=== PATIENT | female | born 1980 | race Caucasian/White ===

== ENCOUNTER 2016-11-17 11:58 | Day surgery (SDC) | payer OTHER ==
[2016-11-17] VITALS (8 sets, daily range): BP systolic 100–128; BP diastolic 59–67; PULSE 57–73; RESP 15–16; O2SAT 98–100
[~2016-11-17] VITALS: Ht 152.4 cm; Wt 70.4 kg
[~2016-11-17 11:58] MED LIST: levoFLOXacin Inj 500 MG in IV Premix 1 EACH IV SCH
[2016-11-17] MEDS ORDERED: Propofol 10,000 mCg/mL 20 mL Inj ONE (11:59)
[2016-11-17] MEDS ORDERED: MetoCLOpramide 5 mg/mL 2 mL Inj ONE (11:59)
[2016-11-17] MEDS ORDERED: Dexamethasone 4 mg/mL Inj ONE (11:59)
[2016-11-17] MEDS: Lactated Ringer's 1,000 ML IV SCH ×2 (12:07→14:53)
[2016-11-17] MEDS ORDERED: levoFLOXacin 500 mg/100 mL D5W Premix IV ONE (12:14)
--- NOTE | 2016-11-17 13:25 | PCM.HPANE ---
Patient Data Date of Service: Nov 17, 2016 Surgeon Admitting Provider: Attending Provider:Johanna Bryant MD Primary Care Physician:Hari Other Provider:Shaila Parra Anesthesia Reason for Visit Urinary Urgency, Urinary Incontinence Ht/WT & BMI Height (Feet): 5 Height (Inches): 0 Weight (Kilograms): 70.4 Body Mass Index 30.00 Allergies Coded Allergies: No Known Allergies (Unverified , 11/10/16) Past Anesthesia History Anesthesia History: Denies:: Anesthesia Reactions, Fam Anesthesia Reaction, Fam Malignant Hypertherm, Malignant Hyperthermia Diabetes History Hx Diabetes?: No MRSA MRSA: No Medications Hypertension Medication: No Home Meds Incl Beta Dagoberto: No No Active Prescriptions or Reported Meds History History of ENT Problems?: No HEENT History: Denies:: Cataracts Glaucoma Hearing Problem Denture Type: None Teeth Condition: Within Normal Limits (permanent retainer) Hx of Heart Problems?: No Cardiovascular History: Denies:: Abdominal Aortic Aneurism Atrial Fibrillation Chest Pain Heart Murmur Hypertension Irregular Heartbeat Pacemaker Hx of Respiratory Problem?: No Respiratory History: Denies:: Asthma COPD Emphysema Oxygen Administration Pneumonia Tuberculosis Use of C-PAP Machine Hx Neurologic Problems?: Yes Neurological History: Positive for:: Headaches (frequent headaches- has not sought tx for) Denies:: CVA Multiple Sclerosis Parkinson's Disease Seizures TIA Hx of GI Problems?: No Hx of Problems?: Yes Genitourinary History: Denies:: Urinary Tract Infection Other Pertinent History: urge incontinence Female Hx: Denies:: Currently (neg preg test) Problems with Breasts? Hx Musculoskeletal Problems?: No Musculoskeletal History: Denies:: Back Injury Fibromyalgia Musculoskeletal Trauma Osteoarthritis Rheumatoid Arthritis Hx of Psycho/Social Problems?: No Hx Surgeries?: Yes (dental as child) Hx Any Other Health Problems?: No Other History: Denies:: Cancer Thyroid Disease History Blood Transfusions: Positive for:: Accept Blood Products? Denies:: Blood Transfusions Hx Diabetes: No Hx Alcohol Use: NoHx Substance Use: NoHave You Smoked inLast 12 mo: No Stop/Bang Treated for Sleep Apnea?: No Do You Have a CPAP Machine?: No S-Snoring: Do You Snore Loudly: No T-Tired: feel tired, fatigued: No O-Obsered: Observed not breath: No P-Blood Pressure: treated: No B- Body Mass Index > 35 kg/m2: No A- Age over 50: No N- Neck Large Circumference: No G- Gender Male: No JANINE Total Score: 0 JANINE Risk Assessment: Low Risk, <3 Yes Risk Assessment Category Category 1A: Patient has history of documented sleep apnea, and HAS NOT received any narcotic, sedative or anesthesia administration during this stay. Category 1B: Patient has history of documented sleep apnea, and HAS received any narcotic , sedative or anesthesia administration during this stay Category 2: Patient has SUSPECTED Obstructive Sleep Apnea, and HAS received any narcotic , sedative or anesthesia administration during this stay. Category 3: Patient has SUSPECTED Obstructive Sleep Apnea and HAS NOT received narcotic, sedative or anesthesia administration during this stay. Category 4: Outpatient in Procedural Areas with known sleep apnea or who screen positive for High Risk via the STOP/BANG questionnaire. Exam Exam Vital Signs Vital Signs Date Time Temp Pulse Resp B/P Pulse Ox O2 Delivery O2 Flow Rate FiO2 11/17/16 12:18 36.5 57 16 117/67 98 Room Air General Appearance: Alert, Oriented X3, Cooperative, No Acute Distress HEENT/AIRWAY: MP 3, Neck Movement (from), Mouth Opening (3), Other (tmd3) Lungs: Normal Air Movement Heart: Exam Unremarkable, Regular Rate/Rhythm, Normal S1, Normal S2, No Murmurs /Rubs/Gallops Meds/Labs/Diagnostics Admission Meds Current Medications Lactated Ringer's (Lr) 1,000 ml @ 120 mls/hr [id number] IV Last administered on t 12:07; Start 11/17/16 at 05:00; Stop 11/17/16 at 13:19 Plan Impression Patient chart reviewed, patient interviewed and anesthestic plan with risks, benefits, and alternatives discussed, and informed consent obtained. NPO per Anesth. Guidelines: Yes ASA Physical Status: ASA1 Normal Healthy Anesthetic Plan: GA Bene/Risks/Altern/Consents: Yes HP Complete Prior to Induction: Yes Ronald Long DO Nov 17, 2016 13:25 Jarrett Rodriguez MD Nov 17, 2016 14:42
[2016-11-17] MEDS ORDERED: Belladonna Alk-Opium 60 mg Rectal Suppository RECTAL ONE ×2 (14:32→15:17)
[2016-11-17] MEDS ORDERED: Estrogens Conjugated 30 Gm Vaginal Cream VAGINAL ONE (15:17)
[2016-11-17] MEDS ORDERED: Lidocaine 1%-Epi 1:100,000 50 mL Inj INJ ONE (15:17)
[2016-11-17] MEDS ORDERED: Bupivacaine-MPF 0.5% W/EPI 30 mL Inj INJ ONE (15:17)
[2016-11-17] MEDS ORDERED: HYDROcodone-APAP 5-325 mg Tablet PO PRN (16:05)
[2016-11-17] MEDS ORDERED: Ondansetron 8 mg ODT Tablet PO PRN (16:05)
[2016-11-17] MEDS ORDERED: Lactated Ringer's 1,000 ML IV SCH (16:51)
[2016-11-17] MEDS ORDERED: Lactated Ringer's 500 ML IV PRN (16:51)
[2016-11-17] MEDS ORDERED: Phenylephrine 10,000 mCg/mL Inj IVPUSH PRN (16:55)
[2016-11-17] MEDS ORDERED: EPHEDrine Sulfate 50 mg/mL Inj IVPUSH PRN (16:55)
[2016-11-17] MEDS ORDERED: Dexamethasone 4 mg/mL Inj IVPUSH PRN (16:55)
[2016-11-17] MEDS ORDERED: Ondansetron 2 mg/mL 2 mL Inj IVPUSH PRN (16:55)
[2016-11-17] MEDS ORDERED: fentaNYL-PF 50 mCg/mL 2 mL Inj IVPUSH PRN (16:55)
[2016-11-17] MEDS ORDERED: MetoCLOpramide 5 mg/mL 2 mL Inj IVPUSH PRN (16:55)
[2016-11-17] MEDS ORDERED: HYDROmorphone 1 mg/mL Inj IVPUSH PRN (16:55)
--- NOTE | 2016-11-17 17:00 | PCM.ANEP1 ---
Post Anesthesia PACU Phase 1 Assessment Date of Service: Nov 17, 2016 Vital Signs Vital Signs Date Time Temp Pulse Resp B/P Pulse Ox O2 Delivery O2 Flow Rate FiO2 11/17/16 16:35 36.5 57 16 100/67 99 Room Air 11/17/16 16:25 70 16 104/59 100 Room Air 11/17/16 16:15 69 15 109/63 100 Room Air 11/17/16 16:10 59 16 101/67 100 Simple Mask 10 11/17/16 16:05 73 15 101/63 100 Simple Mask 10 11/17/16 16:01 36.2 72 16 105/64 100 Simple Mask 10 11/17/16 12:18 36.5 57 16 117/67 98 Room Air Anesthetic Administered: GA Level of Alertness: Awake, talking YEUNG's with Equal Strength: Yes Pain: No Nausea or Vomiting: No CV Function & Hydration Stable: Yes Airway Device: none Oxygen Delivery: Simple Mask Lungs: Normal Air Movement Summary 11/17/16 16:35 36.5 57 16 100/67 99 Room Air PACU Phase 2 Assessment Complications: No Follow up Care: N/A Patient Instructions Provided: N/A Jarrett Rodriguez MD Nov 17, 2016 17:00
--- NOTE | 2016-11-18 21:20 | OP ---
[address] [address] OPERATIVE REPORT PATIENT: LUIS MIGUEL CARBONE : 1980 MR#: [id number] ADMIT: 11/17/2016 JOB ID: [id number] DATE OF SURGERY: 11/17/2016 PROCEDURE: Transobturator tape mid urethral sling with cystoscopy. SURGEON: Johanna Bryant MD ANESTHESIA: General. PREOPERATIVE DIAGNOSIS(ES): Stress urinary continence. POSTOPERATIVE DIAGNOSIS(ES): Stress urinary continence. INDICATION: The patient is a 35-year-old woman, very active, with very bothersome stress urinary continence, wishing to proceed with synthetic sling placement. She has completed childbearing and wants no more children. The risks and benefits were discussed at length and she wished to proceed. PROCEDURE IN DETAIL: After appropriate informed consent was obtained, the patient was brought to the operating room. She received IV antibiotics prior to the onset of the procedure. SCDs were placed. Adequate general anesthesia was induced. She was carefully placed in the dorsal lithotomy position. All pressure points were carefully padded. She was cleaned, prepped, and draped in the usual sterile fashion. Rigid scope was introduced into the bladder which was surveyed and found to be normal in appearance. We left the Meneses catheter in place. Lidocaine with epinephrine was used to infiltrate the area overlying the mid urethra. We made a sharp dissection down the mid urethra, dissected out laterally to the inferior pubic rami on both sides with care taken to protect the urethra. We then made puncture wounds at the superior medial border of the obturator foramen on the right and the left. We used the Coloplast C hook to puncture through the superior medial border of the obturator foramen. This was carried out, with the finger protecting the urethra, into the vaginal wound, done on both sides. We placed the Coloplast mesh under no tension but just right beneath the mid urethra. Tails were trimmed. The wound itself was irrigated out copiously with antibiotic solution. The vaginal wound was closed with a 2-0 Vicryl on a CT2. The groin wounds were closed with Dermabond. She tolerated the procedure very well. Cystoscopy was performed prior to closure to ensure no puncture of the bladder was seen. There were no injuries. The urine was clear. No mesh or needles were seen in the patient's bladder. Urethra is intact likewise.
== END 2016-11-17 23:59 | disposition home or self-care (01) ==
LOC: SAS 11:58
PROVIDERS: ATTEND Urology
DX: R39.15 Urgency of urination (principal); R32 Unspecified urinary incontinence; R51 Headache
CPT/HCPCS: 57288; C1771; J1100; J1885; J2250; J2765; J7120